=== PATIENT | female | born 1950 | race Caucasian/White ===

== ENCOUNTER 2018-04-12 18:16 | Emergency (ER) | payer MEDICARE ==
[~2018-04-12] VITALS: Ht 160 cm; Wt 85.3 kg
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
[2018-04-13 04:54] VITALS: BP 152/97
== END 2018-04-12 22:13 | disposition home or self-care (01) ==
LOC: ER 18:16
DX: M54.2 Cervicalgia (principal); S16.1XXA Strain of muscle, fascia and tendon at neck level, initial encounter; S00.83XA Contusion of other part of head, initial encounter; V43.53XA Car driver injured in collision with pick-up truck in traffic accident, initial encounter; Y92.488 Other paved roadways as the place of occurrence of the external cause; M32.9 Systemic lupus erythematosus, unspecified; E03.9 Hypothyroidism, unspecified
CPT/HCPCS: 70450; 72125